=== PATIENT | male | born 1950 | race African-American/Black ===

== ENCOUNTER 2020-01-27 13:17 | Inpatient (IN) | payer MEDICARE, BC ==
[~2020-01-27] VITALS: Ht 170.2 cm; Wt 95.3 kg
[2020-01-27 13:20] VITALS: BP 111/80
--- NOTE | 2020-01-27 13:30 | NUR ---
ED Nurse Note: Late entry: PT brought in by EMS, bleeding from L-AV dialysis shunt since 1200 today. PT is AAO x 3-4; placed on cardiac monitors, show hypotensive, SR to ST 90-110; 1L bolus started per MD order during bedside assessment, due to hypotension, Will continue to monitor.
[2020-01-27] MEDS ORDERED: Surgicel 4in x 8in TOPIC ONE (13:45)
[2020-01-27 14:17] LABS: BASOPHILS % (AUTO) 0.8 % (0.0-2.0); EOSINOPHILS % (AUTO) 1.7 % (0.0-3.0); HEMATOCRIT 40.5 % (42.0-52.0); HEMOGLOBIN 12.9 G/DL (14.2-18.0); LYMPHOCYTES % (AUTO) 13.2 % (20.0-45.0); MEAN CORPUSCULAR VOLUME 101 FL (80-99); NEUTROPHILS % (AUTO) 71.3 % (45.0-75.0); PLATELET COUNT 214 K/UL (150-450); RED BLOOD COUNT 4.01 M/UL (4.70-6.10); RED CELL DISTRIBUTION WIDTH 14.3 % (11.6-14.8); WHITE BLOOD COUNT 7.9 K/UL (4.8-10.8)
--- NOTE | 2020-01-27 14:22 | Emergency Room Report ---
History of Present Illness General Chief Complaint: General Complaint Source: Patient (Solomon Snyder M.D.) Present Illness HPI 69-year-old male history of end-stage renal disease on dialysis Tuesday presented for bleeding from dialysis access of left upper extremity. Patient states he was having a bowel movement when he developed some bleeding at his dialysis shunt. He denies any pain but was complaining of some dizziness on arrival. He states he is "squeamish". No chest pain or shortness of breath. Or vomiting. Doctor is Dr. Yoshi Rhodes and concert promoter is Dr. Blair.. He denies any history of transfusions. (Solomon Snyder M.D.) Allergies: Coded Allergies: No Known Allergies (Verified , 02/22/09) Patient History Past Medical History: see triage record Reviewed Nursing Documentation: PMH: Agreed; PSxH: Agreed (Solomon Snyder M.D.) Nursing Documentation-PMH Hx Hypertension: Yes Hx Dialysis: Yes - m,w,f (Solomon Snyder M.D.) Review of Systems All Other Systems: negative except mentioned in HPI (Solomon Snyder M.D.) Physical Exam Vital Signs Date Time Temp Pulse Resp B/P (MAP) Pulse Ox O2 Delivery O2 Flow Rate FiO2 01/27/20 13:12 97.9 60 16 111/80 (90) 98 Room Air Sp02 EP Interpretation: reviewed, normal General Appearance: well appearing Head: normocephalic, atraumatic Eyes: bilateral eye PERRL, bilateral eye EOMI ENT: hearing grossly normal, moist mucus membranes Neck: full range of motion, supple Respiratory: lungs clear, normal breath sounds, no rhonchi, no respiratory distress, no retraction, no wheezing Cardiovascular #1: normal peripheral pulses, regular rate, rhythm, no murmur, other - AV shunt in left upper extremity with a small punctate hole with bleeding Gastrointestinal: non tender, soft, non-distended, no guarding Neurologic: alert, oriented x3, no focal defects Skin: normal color, warm/dry (Solomon Snyder M.D.) Procedures Additional Procedure Procedure Narrative Wound care Verbal consent obtained from patient site was left forearm, this was to control bleeding, using a hemostatic dressing was placed on a an existing dialysis shunt. Patient tolerated procedure well without complication (Solomon Snyder M.D.) Medical Decision Making Diagnostic Impression: Primary Impression: Syncope Additional Impressions: Bleeding from dialysis shunt Hyperkalemia ER Course Differential diagnosis included but not limited to syncope, vasovagal syndrome, anemia, bleeding dialysis access to name a few. Hemostatic dressing applied to dialysis access. IV fluid bolus given. In the ER while I was addressing patient's wound he did have a syncopal event. Due to this occurrence patient will fire further observation. Laboratory studies were sent. Signed out to oncoming physician to follow-up on diagnostics and final disposition. He was updated at bedside. (Solomon Snyder M.D.) Laboratory Tests Test 01/27/20 13:45 White Blood Count 7.9 K/UL (4.8-10.8) Red Blood Count 4.01 M/UL (4.70-6.10) L Hemoglobin 12.9 G/DL (14.2-18.0) L Hematocrit 40.5 % (42.0-52.0) L Mean Corpuscular Volume 101 FL (80-99) H Mean Corpuscular Hemoglobin 32.0 PG (27.0-31.0) H Mean Corpuscular Hemoglobin Concent 31.7 G/DL (32.0-36.0) L Red Cell Distribution Width 14.3 % (11.6-14.8) Platelet Count 214 K/UL (150-450) Mean Platelet Volume 6.2 FL (6.5-10.1) L Neutrophils (%) (Auto) 71.3 % (45.0-75.0) Lymphocytes (%) (Auto) 13.2 % (20.0-45.0) L Monocytes (%) (Auto) 13.0 % (1.0-10.0) H Eosinophils (%) (Auto) 1.7 % (0.0-3.0) Basophils (%) (Auto) 0.8 % (0.0-2.0) Prothrombin Time 10.8 SEC (9.30-11.50) Prothrombin Time INR 1.0 (0.9-1.1) Activated Partial Thromboplast Time 29 SEC (23-33) Sodium Level 139 MMOL/L (136-145) Potassium Level 5.3 MMOL/L (3.5-5.1) H Chloride Level 99 MMOL/L (98-107) Carbon Dioxide Level 22 MMOL/L (21-32) Anion Gap 18 mmol/L (5-15) H Blood Urea Nitrogen 58 mg/dL (7-18) H Creatinine 13.1 MG/DL (0.55-1.30) H Estimate Glomerular Filtration Rate 4.6 mL/min (>60) Glucose Level 111 MG/DL (74-106) H Calcium Level 7.5 MG/DL (8.5-10.1) L Total Bilirubin 0.3 MG/DL (0.2-1.0) Aspartate Amino Transferase (AST) 11 U/L (15-37) L Alanine Aminotransferase (ALT) 15 U/L (12-78) Alkaline Phosphatase 84 U/L (46-116) Total Protein 8.7 G/DL (6.4-8.2) H Albumin 3.4 G/DL (3.4-5.0) Globulin 5.3 g/dL Albumin/Globulin Ratio 0.6 (1.0-2.7) L (Scooter Cisneros MD) EKG Diagnostic Results Rate: normal Rhythm: NSR Other Impression T waves inverted in lead I and aVL. (Solomon Snyder M.D.) Last Vital Signs Date Time Temp Pulse Resp B/P (MAP) Pulse Ox O2 Delivery O2 Flow Rate FiO2 01/27/20 13:12 97.9 60 16 111/80 (90) 98 Room Air (Solomon Snyder M.D.) Reevaluation Time: 15:34 Reevaluation Impression Assumed care of the patient approximately 1500 hrs. from previous provider Briefly, this is 69-year-old male with history of ESRD on hemodialysis MWF presenting for bleeding AV graft site who had a witnessed syncopal episode while in the emergency department. Labs have returned largely within normal limits. Slight anemia though mentioned that there was a moderate amount of blood loss at home. Troponin negative. Potassium slightly elevated at 5.3. No EKG changes. Patient is feeling better though remains slightly hypotensive in the mid to low 90s. He states he typically runs in the mid 100s. Patient will be admitted for trending H&H and continued monitoring. Bleeding is controlled with Surgicel and Kerlix wrap placed by the previous provider. Will be admitted to panel physician. (Scooter Cisneros MD) Disposition: ADMITTED INPATIENT Condition: Serious Signed Out To: [employer] (Solomon Snyder M.D.) Referrals: NON PHYSICIAN (PCP) Solomon Snyder M.D. Jan 27, 2020 14:22 Scooter Cisneros MD Jan 27, 2020 15:36
[2020-01-27 14:32] LABS: ANION GAP 18 mmol/L (5-15); BLOOD UREA NITROGEN 58 mg/dL (7-18); CALCIUM 7.5 MG/DL (8.5-10.1); CARBON DIOXIDE 22 MMOL/L (21-32); CHLORIDE 99 MMOL/L (98-107); CREATININE 13.1 MG/DL (0.55-1.30); POTASSIUM 5.3 MMOL/L (3.5-5.1); SODIUM 139 MMOL/L (136-145)
[2020-01-27 14:34] LABS: ALANINE AMINOTRANSFERASE 15 U/L (12-78); ALBUMIN 3.4 G/DL (3.4-5.0); ALBUMIN/GLOBULIN RATIO 0.6 (1.0-2.7); ALKALINE PHOSPHATASE 84 U/L (46-116); ASPARTATE AMINO TRANSFERASE 11 U/L (15-37); BILIRUBIN,TOTAL 0.3 MG/DL (0.2-1.0)
--- NOTE | 2020-01-27 15:00 | NUR ---
ED Nurse Note: PT remains hypotensive, ER MD made aware, bolus ordered. Will continue to monitor PT.
[2020-01-27] MEDS ORDERED: Insulin Human Regular 100units/ml 3ml IV ONE (15:45)
[2020-01-27] MEDS ORDERED: Calcium Gluconate 1gm/10ml vial IVP ONE (15:45)
[2020-01-27 16:34] VITALS: BP 92/59
--- NOTE | 2020-01-27 17:39 | NUR ---
ED Nurse Note: Gave SBAR report to LENORA Rich; PT is going to [facility] tele status; med recon not done as PT did not have a list of meds at bedside or during triage, PT went home to go get his medications. PT reports PT has HX triple bypass, hip replacement, kidney transplant 3 years ago which failed and is currently on MWF dialysis average 2-3L out per session. BP 105/62; HR 70; 100% saturation on 2L-NC, 14 RR.
[2020-01-27 18:00] VITALS: BP 105/62
--- NOTE | 2020-01-27 18:15 | NUR ---
TRANSFER TO FLOOR: Patient transferred to [facility] as ordered, per MD Siddharth. Report given to LENORA Rich. Belongings signed for by PT. aware of transfer. PT was able to recall HX from past: multiple thrombectomy, prostatectomy, prostate cancer, removal of parathyroids, quad bypass, R-knee replacement, R-hip replacement, gout. PT current home meds plavix, ASA, lipitor.
--- NOTE | 2020-01-27 18:18 | Consultation ---
Consult Note Consult Note I was asked to evaluate the patient at the request of Dr. Messina for dialysis management Mr. Alvarado Prasad 69 years old male was seen in the emergency room he is on the way up to [place] Patient have history of end-stage renal disease on hemodialysis from year 2006 on 2013 the patient received a kidney transplant which lasted 2 years only and again the patient has been on hemodialysis since 2016 His previous surgeries include a partial parathyroidectomy prostatectomy due to cancer quadruple bypass surgery right knee and right hip surgery replacement Patient has a left upper arm fistula and had multiple episodes of thrombosis requiring thrombectomy Patient states that he was having a bowel movement when he developed some bleeding from his dialysis shunt. He referred himself to [place] emergency room was seen by Dr. Snyder the bleeding shunt was managed by pressure and wrapping however in the midst of it the patient developed an episode of hypotension and a witnessed syncope blood pressure went down to 70 systolic which went back up after given a bolus of fluids Patient is now being admitted to [place] for further management Blood pressure is now 110/80 pulse rate 60 respiratory rate 16 temperature 97.9 Alert and oriented and a great historian Evidence of surgeries on the neck area and mid chest area present Not in any respiratory distress Heart is regular Lungs are clear Abdomen is soft No leg edema She has no allergies His medications are aspirin Plavix and Lipitor . Assessment/Plan Witnessed syncope Bleeding from dialysis shunt over the left upper arm History of hypotension Mild hyperkalemia Plan would be to Get the vascular surgical evaluation. Patient needs an Welcome for tomorrow's dialysis. Need vascular surgical opinion if the current access is usable or the patient need a temporary catheter for dialysis Meanwhile we will put the patient on renal diet Will give a dose of Kayexalate And continue per consultants advice Discussed with Wilfredo the nurse in [place] Discussed with Dr. Blanc who suggested not to use the left upper arm graft and arrange for dialysis through a catheter. And he suggested to keep the left upper arm graft tightly bandaged to prevent further bleeding. Meanwhile we arrange placement of a non-tunneled dialysis catheter in order to dialyze the patient tomorrow. We then arrange for patient's transfer for fistulogram and repair of the shunt to either [facility] or [facility] as per vascular surgical advice Catracho Lala MD Jan 27, 2020 18:18
[2020-01-27] MEDS ORDERED: Sodium Polystyrene Sulfonate 15gm Powder ORAL SCH (18:30)
--- NOTE | 2020-01-27 18:30 | NUR ---
NURSE NOTES: Received report from Rhina Lu RN. Patient alert and oriented x 4, able to make needs known and follow commands. SR on diagnostic cardiac sonographer. Receiving O2 via nasal cannula @ 2L/min, respirations even and unlabored. Left AV shunt with clean and dry kerlix, no bleeding noted. Skin intact but noted with surgical scar on mid-chest. Right AC 18g patent and asymptomatic. Patient ambulated to bathroom and had BM. Bed locked in lowest position with side rails up x 3. All needs attended to. Call light within reach. Will continue to monitor.
--- NOTE | 2020-01-27 19:00 | NUR ---
NURSE NOTES: pt report received from MICHAEL Ku RN. pt remains stable. pt is alert and oriented times 4, follow commands. 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 pt is on room air, satting at 99%, no resp distress noted. pt bed is low, locked, armed, call light within reach, bed rails up times 3. will follow plan of care.
--- NOTE | 2020-01-27 19:43 | NUR ---
HAND-OFF: Report given to Rhina Butler RN.
[2020-01-27 20:00] VITALS: BP 98/65
[2020-01-27] MEDS: Atorvastatin 20mg tab ORAL SCH (22:11)
[2020-01-27] MEDS: D5NS 1,000 ML IV SCH (22:13)
[2020-01-28] VITALS (7 sets, daily range): BP systolic 93–127; BP diastolic 46–79
[2020-01-28] MEDS ORDERED: PLAVIX75 MG ORAL (01:36)
[2020-01-28] MEDS ORDERED: ATORVASTATIN CA10 MG ORAL (01:36)
[2020-01-28] MEDS ORDERED: ASPIRIN MC (01:39)
[2020-01-28] MEDS ORDERED: CALCIUM ACETATE1 GM MC (01:39)
[2020-01-28 05:41] LABS: BASOPHILS % (AUTO) 0.5 % (0.0-2.0); EOSINOPHILS % (AUTO) 2.2 % (0.0-3.0); HEMATOCRIT 32.4 % (42.0-52.0); HEMOGLOBIN 10.5 G/DL (14.2-18.0); LYMPHOCYTES % (AUTO) 16.4 % (20.0-45.0); MEAN CORPUSCULAR VOLUME 100 FL (80-99); MONOCYTES % (AUTO) 18.7 % (1.0-10.0); NEUTROPHILS % (AUTO) 62.2 % (45.0-75.0); PLATELET COUNT 180 K/UL (150-450); RED BLOOD COUNT 3.24 M/UL (4.70-6.10); RED CELL DISTRIBUTION WIDTH 14.3 % (11.6-14.8)
[2020-01-28 06:19] LABS: ALANINE AMINOTRANSFERASE 19 U/L (12-78); ALBUMIN 2.7 G/DL (3.4-5.0); ALBUMIN/GLOBULIN RATIO 0.6 (1.0-2.7); ALKALINE PHOSPHATASE 64 U/L (46-116); ANION GAP 16 mmol/L (5-15); ASPARTATE AMINO TRANSFERASE 9 U/L (15-37); BILIRUBIN,TOTAL 0.3 MG/DL (0.2-1.0); BLOOD UREA NITROGEN 62 mg/dL (7-18); CALCIUM 6.9 MG/DL (8.5-10.1); CARBON DIOXIDE 20 MMOL/L (21-32); CHLORIDE 103 MMOL/L (98-107); CHOLESTEROL 91 MG/DL (< 200); CREATININE 13.9 MG/DL (0.55-1.30); GAMMA GLUTAMYL TRANSPEPTIDASE 22 U/L (5-85); HDL CHOLESTEROL 26 MG/DL (40-60); SODIUM 140 MMOL/L (136-145); TRIGLYCERIDES 81 MG/DL (30-150)
[2020-01-28 06:25] LABS: POTASSIUM 6.1 MMOL/L (3.5-5.1)
--- NOTE | 2020-01-28 07:19 | NUR ---
NURSE NOTES: received patient report from gianna tripp.patient i son bed awake. not in acute distress. for catheter placement today. bed is low and locked for safety. will follow plan of care.
[2020-01-28 07:48] LABS: % IRON SATURATION 38 % (15-50); IRON 51 ug/dL (50-175); TOTAL IRON BINDING CAPACITY 136 ug/dL (250-450)
[2020-01-28 07:50] LABS: LACTATE DEHYDROGENASE 158 U/L (81-234)
--- NOTE | 2020-01-28 07:54 | NUR ---
HAND-OFF: Report given to WILMA COOLEY. Pt remains stable.
--- NOTE | 2020-01-28 08:13 | Nephrology Progress Note ---
Assessment/Plan Problem List: (1) ESRD (end stage renal disease) on dialysis (2) Hyperkalemia (3) Syncope (4) Bleeding from dialysis shunt Assessment Witnessed syncope Bleeding from dialysis shunt over the left upper arm History of hypotension Mild hyperkalemia Plan Kayexelate- Non tunneled cath placement and dialysis vascular surgical intervention afterwards Subjective ROS Limited/Unobtainable: No Constitutional: Reports: malaise Objective Objective Last 24 Hour Vital Signs Date Time Temp Pulse Resp B/P (MAP) Pulse Ox O2 Delivery O2 Flow Rate FiO2 01/28/20 04:00 69 01/28/20 00:00 69 01/28/20 00:00 98.6 79 23 96/69 (78) 99 01/27/20 21:00 Room Air Room Air 01/27/20 20:00 98.1 76 23 98/65 (76) 99 01/27/20 20:00 80 01/27/20 19:48 Nasal Cannula 1.0 01/27/20 18:15 98.5 70 22 105/62 100 Nasal Cannula 2.0 01/27/20 18:00 98.5 70 22 105/62 100 Nasal Cannula 2.0 01/27/20 16:34 97.9 100 15 92/59 100 Nasal Cannula 2.0 01/27/20 14:31 110 16 Nasal Cannula 2.0 01/27/20 13:20 97.9 110 16 111/80 98 Room Air 01/27/20 13:12 97.9 60 16 111/80 (90) 98 Room Air Intake and Output 01/27/20 01/28/20 19:00 07:00 Intake Total 240 ml 400 ml Balance 240 ml 400 ml Intake Oral 240 ml IV Total 400 ml # Bowel Movements 1 Laboratory Tests 01/27/20 13:45: White Blood Count 7.9, Red Blood Count 4.01L, Hemoglobin 12.9L, Hematocrit 40.5L , Mean Corpuscular Volume 101H, Mean Corpuscular Hemoglobin 32.0H, Mean Corpuscular Hemoglobin Concent 31.7L, Red Cell Distribution Width 14.3, Platelet Count 214, Mean Platelet Volume 6.2L, Neutrophils (%) (Auto) 71.3, Lymphocytes (%) (Auto) 13.2L, Monocytes (%) (Auto) 13.0H, Eosinophils (%) (Auto ) 1.7, Basophils (%) (Auto) 0.8, Prothrombin Time 10.8, Prothromb Time International Ratio 1.0, Activated Partial Thromboplast Time 29, Sodium Level 139, Potassium Level 5.3H, Chloride Level 99, Carbon Dioxide Level 22, Anion Gap 18H, Blood Urea Nitrogen 58H, Creatinine 13.1H, Estimat Glomerular Filtration Rate 4.6, Glucose Level 111H, Calcium Level 7.5L, Total Bilirubin 0.3 , Aspartate Amino Transf (AST/SGOT) 11L, Alanine Aminotransferase (ALT/SGPT) 15 , Alkaline Phosphatase 84, Troponin I 0.000, Total Protein 8.7H, Albumin 3.4, Globulin 5.3, Albumin/Globulin Ratio 0.6L, Carcinoembryonic Antigen [Pending] 01/28/20 04:30: White Blood Count 6.0, Red Blood Count 3.24L, Hemoglobin 10.5L, Hematocrit 32.4L , Mean Corpuscular Volume 100H, Mean Corpuscular Hemoglobin 32.4H, Mean Corpuscular Hemoglobin Concent 32.3, Red Cell Distribution Width 14.3, Platelet Count 180, Mean Platelet Volume 6.4L, Neutrophils (%) (Auto) 62.2, Lymphocytes ( %) (Auto) 16.4L, Monocytes (%) (Auto) 18.7H, Eosinophils (%) (Auto) 2.2, Basophils (%) (Auto) 0.5, Sodium Level 140, Potassium Level 6.1*H, Chloride Level 103, Carbon Dioxide Level 20L, Anion Gap 16H, Blood Urea Nitrogen 62H, Creatinine 13.9H, Estimat Glomerular Filtration Rate 4.4, Glucose Level 97, Calcium Level 6.9L, Total Bilirubin 0.3, Aspartate Amino Transf (AST/SGOT) 9L, Alanine Aminotransferase (ALT/SGPT) 19, Alkaline Phosphatase 64, Troponin I 0.000, Total Protein 7.0, Albumin 2.7L, Globulin 4.3, Albumin/Globulin Ratio 0.6L, Hemoglobin A1c 5.9, Uric Acid 7.2, Phosphorus Level 9.0H, Magnesium Level 2.0, Iron Level 51, Total Iron Binding Capacity 136L, Percent Iron Saturation 38 , Unsaturated Iron Binding 85L, Ferritin [Pending], Gamma Glutamyl Transpeptidase 22, Lactate Dehydrogenase [Pending], C-Reactive Protein, Quantitative 3.1H, Pro-B-Type Natriuretic Peptide 1479H, Triglycerides Level 81 , Cholesterol Level 91, LDL Cholesterol 52, HDL Cholesterol 26L, Cholesterol/ HDL Ratio 3.5, Folate 7.8L, Thyroid Stimulating Hormone (TSH) 0.894 Height (Feet): 5 Height (Inches): 7.00 Weight (Pounds): 196 General Appearance: no apparent distress Cardiovascular: normal rate Respiratory/Chest: lungs clear Abdomen: soft Extremities: other - left arm shunt bandaged Catracho Lala MD Jan 28, 2020 08:13
[2020-01-28] MEDS ORDERED: Sodium Polystyrene Sulfonate 15gm Powder ORAL SCH (08:15)
[2020-01-28 08:17] LABS: FERRITIN 972 NG/ML (8-388)
[2020-01-28] MEDS: Docusate 100mg cap ORAL SCH ×3 (08:31→17:20)
--- NOTE | 2020-01-28 10:28 | NUR ---
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 97.8 HR 60 RR 16 B/P 111/80 K 5.3 AGAP 18 VENOUS DUPLEX BLE=NEGATIVE IS: IV BOLUS NS X 1.5 LITERS CALCIUM GLUCONATE IV REGULAR INSULIN IV D50 IV ADMITTED TO STEP DOWN @ 1815 STEP DOWN STATUS DCP RETURN HOME
[2020-01-28] MEDS ORDERED: Lidocaine 1% Plain 30 ml INJ ONE (11:30)
[2020-01-28] MEDS ORDERED: Heparin1,000 units/500ml Premix(Conc:2 units/ml) IV ONE (11:30)
--- NOTE | 2020-01-28 12:41 | Cardiac Electrophysiology PN ---
Subjective Subjective [id number] Objective Last 24 Hour Vital Signs Date Time Temp Pulse Resp B/P (MAP) Pulse Ox O2 Delivery O2 Flow Rate FiO2 01/28/20 09:00 Room Air Room Air 01/28/20 07:52 82 01/28/20 04:00 69 01/28/20 00:00 69 01/28/20 00:00 98.6 79 23 96/69 (78) 99 01/27/20 21:00 Room Air Room Air 01/27/20 20:00 98.1 76 23 98/65 (76) 99 01/27/20 20:00 80 01/27/20 19:48 Nasal Cannula 1.0 01/27/20 18:15 98.5 70 22 105/62 100 Nasal Cannula 2.0 01/27/20 18:00 98.5 70 22 105/62 100 Nasal Cannula 2.0 01/27/20 16:34 97.9 100 15 92/59 100 Nasal Cannula 2.0 01/27/20 14:31 110 16 Nasal Cannula 2.0 01/27/20 13:20 97.9 110 16 111/80 98 Room Air 01/27/20 13:12 97.9 60 16 111/80 (90) 98 Room Air Intake and Output 01/27/20 01/28/20 19:00 07:00 Intake Total 240 ml 400 ml Balance 240 ml 400 ml Intake Oral 240 ml IV Total 400 ml # Bowel Movements 1 Laboratory Tests Test 01/27/20 13:45 01/28/20 04:30 01/28/20 08:20 White Blood Count 7.9 K/UL (4.8-10.8) 6.0 K/UL (4.8-10.8) Red Blood Count 4.01 M/UL (4.70-6.10) L 3.24 M/UL (4.70-6.10) L Hemoglobin 12.9 G/DL (14.2-18.0) L 10.5 G/DL (14.2-18.0) L Hematocrit 40.5 % (42.0-52.0) L 32.4 % (42.0-52.0) L Mean Corpuscular Volume 101 FL (80-99) H 100 FL (80-99) H Mean Corpuscular Hemoglobin 32.0 PG (27.0-31.0) H 32.4 PG (27.0-31.0) H Mean Corpuscular Hemoglobin Concent 31.7 G/DL (32.0-36.0) L 32.3 G/DL (32.0-36.0) Red Cell Distribution Width 14.3 % (11.6-14.8) 14.3 % (11.6-14.8) Platelet Count 214 K/UL (150-450) 180 K/UL (150-450) Mean Platelet Volume 6.2 FL (6.5-10.1) L 6.4 FL (6.5-10.1) L Neutrophils (%) (Auto) 71.3 % (45.0-75.0) 62.2 % (45.0-75.0) Lymphocytes (%) (Auto) 13.2 % (20.0-45.0) L 16.4 % (20.0-45.0) L Monocytes (%) (Auto) 13.0 % (1.0-10.0) H 18.7 % (1.0-10.0) H Eosinophils (%) (Auto) 1.7 % (0.0-3.0) 2.2 % (0.0-3.0) Basophils (%) (Auto) 0.8 % (0.0-2.0) 0.5 % (0.0-2.0) Prothrombin Time 10.8 SEC (9.30-11.50) 10.9 SEC (9.30-11.50) Prothromb Time International Ratio 1.0 (0.9-1.1) 1.0 (0.9-1.1) Activated Partial Thromboplast Time 29 SEC (23-33) Sodium Level 139 MMOL/L (136-145) 140 MMOL/L (136-145) Potassium Level 5.3 MMOL/L (3.5-5.1) H 6.1 MMOL/L (3.5-5.1) *H Chloride Level 99 MMOL/L (98-107) 103 MMOL/L (98-107) Carbon Dioxide Level 22 MMOL/L (21-32) 20 MMOL/L (21-32) L Anion Gap 18 mmol/L (5-15) H 16 mmol/L (5-15) H Blood Urea Nitrogen 58 mg/dL (7-18) H 62 mg/dL (7-18) H Creatinine 13.1 MG/DL (0.55-1.30) H 13.9 MG/DL (0.55-1.30) H Estimat Glomerular Filtration Rate 4.6 mL/min (>60) 4.4 mL/min (>60) Glucose Level 111 MG/DL (74-106) H 97 MG/DL (74-106) Calcium Level 7.5 MG/DL (8.5-10.1) L 6.9 MG/DL (8.5-10.1) L Total Bilirubin 0.3 MG/DL (0.2-1.0) 0.3 MG/DL (0.2-1.0) Aspartate Amino Transf (AST/SGOT) 11 U/L (15-37) L 9 U/L (15-37) L Alanine Aminotransferase (ALT/SGPT) 15 U/L (12-78) 19 U/L (12-78) Alkaline Phosphatase 84 U/L (46-116) 64 U/L (46-116) Troponin I 0.000 ng/mL (0.000-0.056) 0.000 ng/mL (0.000-0.056) Total Protein 8.7 G/DL (6.4-8.2) H 7.0 G/DL (6.4-8.2) Albumin 3.4 G/DL (3.4-5.0) 2.7 G/DL (3.4-5.0) L Globulin 5.3 g/dL 4.3 g/dL Albumin/Globulin Ratio 0.6 (1.0-2.7) L 0.6 (1.0-2.7) L Carcinoembryonic Antigen Pending Differential Total Cells Counted 100 Neutrophils % (Manual) 61 % (45-75) Lymphocytes % (Manual) 20 % (20-45) Monocytes % (Manual) 18 % (1-10) H Eosinophils % (Manual) 1 % (0-3) Basophils % (Manual) 0 % (0-2) Band Neutrophils 0 % (0-8) Platelet Estimate Adequate Platelet Morphology Normal Hemoglobin A1c 5.9 % (4.3-6.0) Uric Acid 7.2 MG/DL (2.6-7.2) Phosphorus Level 9.0 MG/DL (2.5-4.9) H Magnesium Level 2.0 MG/DL (1.8-2.4) Iron Level 51 ug/dL (50-175) Total Iron Binding Capacity 136 ug/dL (250-450) L Percent Iron Saturation 38 % (15-50) Unsaturated Iron Binding 85 ug/dL (112-346) L Ferritin 972 NG/ML (8-388) H Gamma Glutamyl Transpeptidase 22 U/L (5-85) Lactate Dehydrogenase 158 U/L (81-234) C-Reactive Protein, Quantitative 3.1 mg/dL (0.00-0.90) H Pro-B-Type Natriuretic Peptide 1479 pg/mL (0-125) H Triglycerides Level 81 MG/DL (30-150) Cholesterol Level 91 MG/DL (< 200) LDL Cholesterol 52 mg/dL (<100) HDL Cholesterol 26 MG/DL (40-60) L Cholesterol/HDL Ratio 3.5 (3.3-4.4) Vitamin B12 Level 422 PG/ML (193-986) Folate 7.8 NG/ML (8.6-58.9) L Thyroid Stimulating Hormone (TSH) 0.894 uiU/mL (0.358-3.740) Hepatitis B Surface Antigen Pending Microbiology Date/Time Source Procedure Growth Status 01/27/20 17:45 Rectum Received Zenon Gibbs MD Jan 28, 2020 12:41
--- NOTE | 2020-01-28 15:30 | NUR ---
RADIOLOGY NOTE: LEFT LOWER EXTREMITY PICC PLACED. Addendum: 01/28/20 at 1739 by DERECK SOLIS CRT RAD LEFT LOWER EXTREMITY SEEMA CATHETER PLACED
--- NOTE | 2020-01-28 15:54 | Diagnostic Imaging Report ---
Indication: Patient requires hemodialysis. Findings: After the indications, procedure, risks, complications, and alternatives of the procedure were explained, written informed consent was obtained. The neck was prepped with alcohol. All elements of maximal sterile barrier technique were followed including usage of a cap, mask, sterile gown, sterile gloves, hand hygiene and a large sterile sheet. 1% lidocaine was used to anesthetize the skin. Sonographic evaluation was performed demonstrating a patent and compressible left femoral vein. Access was obtained under real-time ultrasound guidance using an 18 gauge needle and a digital image was saved in archive. An 0.035 wire was then advanced into the vein. Needle exchanged for a dilator. A temporary hemodialysis catheter was then advanced over the wire. Wire was removed. Catheter was secured to the skin using 2-0 Prolene suture. Both ports aspirate and flush easily. Fluoroscopic imaging was utilized to negotiate the 035 wire into position. Final position of the hemodialysis catheter was confirmed by fluoroscopy. Total fluoroscopic time 15.7 seconds. The catheter is cleared for use. Impression: Successful placement of left femoral hemodialysis catheter.
--- NOTE | 2020-01-28 16:14 | History and Physical Report ---
DATE OF ADMISSION: 01/27/2020 HISTORY OF PRESENT ILLNESS: The patient . Has end-stage renal disease on hemodialysis, came in for bleeding from the graft without obvious injury. It is controlled with pressure bandage and also had a new weakness, syncopal episode while in the emergency room. Hemoglobin is stable. Potassium was also elevated. No significant EKG changes. The patient on dialysis. The patient's initial blood pressure was on the low side in the emergency room, but improved. Currently, the patient denies any chest pain. Denies nausea, vomiting, or diarrhea. Denies fever or chills. Feels weak. Denies shortness of breath. Denies cough. The bleeding has stopped from the graft on the left arm. Dr. Blanc as well as Dr. Lala were consulted for this patient. Denies any pain at this point. PAST MEDICAL HISTORY: Hyperlipidemia, CAD, end-stage renal disease on hemodialysis, and hyperlipidemia. PAST SURGICAL HISTORY: Parathyroidectomy, prostatectomy, left hip and right knee surgery, , CABG, and graft on the left upper arm for the dialysis. ALLERGIES: No known allergies. FAMILY HISTORY: Does have history of hypertension. SOCIAL HISTORY: Denies history of smoking. Denies history of alcohol or illicit drugs. , lives at home. REVIEW OF SYSTEMS: HEENT: Denies headaches. RESPIRATORY: Denies shortness of breath. Denies cough. CARDIOVASCULAR: Denies chest pain. No orthopnea. GASTROINTESTINAL: Denies any nausea, vomiting, or diarrhea. EXTREMITIES: Denies any pain. CENTRAL NERVOUS SYSTEM: Denies change in speech pattern. PHYSICAL EXAMINATION: VITAL SIGNS: Temperature is 98.1, pulse 76, blood pressure 98/65. HEENT: PERRLA. NECK: Supple. No lymphadenopathy. CHEST: Clear to auscultation. CARDIOVASCULAR: Regular rate and rhythm. No murmurs or extra sounds. GASTROINTESTINAL: Soft, nontender, nondistended. No organomegaly. EXTREMITIES: 1+ edema. Reflexes in both sides. Able to moves all extremities. The patient has normal bleeding at the left forearm graft. NEUROLOGIC: The patient is alert and oriented. LABORATORY DATA: WBC of 7.9, hemoglobin 12.9, and platelets of 214. Sodium 140, potassium 6.1, BUN of 62, creatinine of 13.9, glucose of 97. ASSESSMENT AND PLAN: Syncope, end-stage renal disease, bleeding graft on the left arm, hyperkalemia. I have consulted Dr. Blanc, Dr. Khalil, Dr. Lala as well as Dr. Jefferson Helms for the above-mentioned abnormalities and diagnoses and symptoms. We will also talk to Dr. Lala and see what he wants to do for this graft bleeding issue. Moi Messina M.D. DR: SAV JOB#: [id number] CC:
--- NOTE | 2020-01-28 16:44 | Consultation ---
DATE OF CONSULTATION: 01/28/2020 CARDIOLOGY CONSULTATION CONSULTING PHYSICIAN: Zenon Gibbs M.D. REFERRING PHYSICIAN: Moi Messina M.D. REASON FOR CONSULTATION: Management of coronary artery disease in the patient with coronary artery bypass graft. HISTORY OF PRESENT ILLNESS: The patient is a 69-year-old with history of end-stage renal disease on hemodialysis as well as coronary artery disease with history of coronary artery bypass graft in May of 2019 at [facility]. The patient has been on hemodialysis since 2005 and underwent a kidney transplant in 2013, which lasted 2 years only and the patient was resumed on hemodialysis in 2015. The patient has a left upper arm AV fistula and multiple episodes of thrombosis requiring thrombectomy. The patient was having a bowel movement and developed some bleeding from his dialysis shunt. He brought himself to [place] emergency room, was seen by Dr. Snyder and pressure was applied as well as wrapping. The patient's blood pressure dropped to 70s, but then backed up after the patient received IV fluids . The patient was admitted to [facility] and Cardiology consultation was obtained for further evaluation and management. REVIEW OF SYSTEMS: Review of systems was negative other than what was mentioned in the history of present illness. PAST MEDICAL HISTORY: As mentioned above. PAST SURGICAL HISTORY: 1. Quadruple bypass surgery in 2019. 2. Right hip surgery. 3. Parathyroidectomy. 4. Prostatectomy. PHYSICAL EXAMINATION: VITAL SIGNS: Show blood pressure of 96/69, pulse 82, respirations 18, and temperature 98. HEAD AND NECK: Shows no JVD. LUNGS: Clear. CARDIOVASCULAR: Regular S1 and S2. Status post sternotomy. ABDOMEN: Soft. EXTREMITIES: Dialysis access in the left arm that is covered by dressing in the elbow. LABORATORY AND DIAGNOSTIC DATA: Sodium 140, potassium 6.1, BUN of 62, creatinine of 13.9, glucose of 97. Troponins are negative x2. BNP is 1479. WBC of 6, hemoglobin 10.5, hematocrit 32.5, platelet count 180. INR is 1. ASSESSMENT AND PLAN: 1. Hypotension vagal. Blood pressure is still on the lower side. The patient received IV fluid. We will get an echocardiogram to evaluate for ejection fraction and wall motion abnormality. 2. Coronary artery disease with history of coronary artery bypass graft. The patient on Lipitor 20 mg daily, off aspirin in view of bleeding from the access site. 3. End-stage renal disease, on hemodialysis. 4. Bleeding from dialysis shunt, left upper arm. Further evaluation by Dr. Blanc who recommended transfer of the patient for fistulogram and repair of the shunt at [facility]. 5. Hyperkalemia. Thank you very much for allowing me to participate in the care of this patient. Please do not hesitate to contact me for any questions regarding my evaluation. Sincerely, Zenon Gibbs M.D. DR: Lona JOB#: [id number] CC:
[2020-01-28] MEDS: D5NS 1,000 ML IV SCH (17:49)
--- NOTE | 2020-01-28 18:10 | NUR ---
recieved pt. on dialysis awake alert orientedx4 , dialysis going through kaelyn cath in lt. groin , dressing cover shunt in lt lower arm dry and clean and intact, no c/o
--- NOTE | 2020-01-28 18:10 | NUR ---
HAND-OFF: Report given to jose tripp.
--- NOTE | 2020-01-28 19:00 | NUR ---
report given to JESSICA COREAS RN
--- NOTE | 2020-01-28 19:20 | NUR ---
NURSE NOTES: Received pt from LENORA Ramirez. pt is observed in bed, AO X4, denies pain at this time. pt is on room air, tolerating well, no s/sx of respiratory distress noted. teletypesetter monitor shows SR at this time, with current HR of 91; no acute cardiac distress noted. LFA shunt noted, dressing dry and intact. no s/sx of bleeding noted at this time. RODRIGO shunt noted as well, not in use. Left femoral Jeffrey catheter noted, dressing dry and intact. RAC IV site is patent and intact, asymptomatic. bed in lowest position and locked, siderails up X3, call light within reach. will continue to monitor.
[2020-01-28] MEDS ORDERED: Dyna-Hex 2% Top Sol 2oz TOPIC SCH (20:15)
--- NOTE | 2020-01-28 21:09 | Consultation ---
History of Present Illness General Chief Complaint: General Complaint Present Illness Allergies: Coded Allergies: No Known Allergies (Verified , 02/22/09) Medication History Scheduled Atorvastatin Calcium* (Lipitor*), Unknown Dose ORAL BEDTIME, (Reported) Clopidogrel Bisulfate* (Plavix*), 75 MG ORAL DAILY, (Reported) Miscellaneous Medications Aspirin (Aspirin), Unknown Dose MC, (Reported) Calcium Acetate (Calcium Acetate), Unknown Dose MC, (Reported) Patient History Healthcare decision maker Resuscitation status Full Code Advanced Directive on File Yes Physical Exam Last 24 Hour Vital Signs Date Time Temp Pulse Resp B/P (MAP) Pulse Ox O2 Delivery O2 Flow Rate FiO2 01/28/20 20:00 Room Air Room Air 01/28/20 16:00 77 01/28/20 15:20 70 22 118/72 (87) 100 01/28/20 15:15 76 22 115/72 (86) 100 01/28/20 15:10 75 22 115/79 (91) 100 01/28/20 15:08 77 01/28/20 14:55 74 18 2.0 01/28/20 09:00 Room Air Room Air 01/28/20 07:52 82 01/28/20 04:00 98.4 68 20 93/71 (78) 97 01/28/20 04:00 69 01/28/20 00:00 69 01/28/20 00:00 98.6 79 23 96/69 (78) 99 Intake and Output 01/27/20 01/28/20 19:00 07:00 Intake Total 240 ml 400 ml Balance 240 ml 400 ml Intake Oral 240 ml IV Total 400 ml # Bowel Movements 1 Laboratory Tests Test 01/28/20 04:30 01/28/20 08:20 White Blood Count 6.0 K/UL (4.8-10.8) Red Blood Count 3.24 M/UL (4.70-6.10) L Hemoglobin 10.5 G/DL (14.2-18.0) L Hematocrit 32.4 % (42.0-52.0) L Mean Corpuscular Volume 100 FL (80-99) H Mean Corpuscular Hemoglobin 32.4 PG (27.0-31.0) H Mean Corpuscular Hemoglobin Concent 32.3 G/DL (32.0-36.0) Red Cell Distribution Width 14.3 % (11.6-14.8) Platelet Count 180 K/UL (150-450) Mean Platelet Volume 6.4 FL (6.5-10.1) L Neutrophils (%) (Auto) 62.2 % (45.0-75.0) Lymphocytes (%) (Auto) 16.4 % (20.0-45.0) L Monocytes (%) (Auto) 18.7 % (1.0-10.0) H Eosinophils (%) (Auto) 2.2 % (0.0-3.0) Basophils (%) (Auto) 0.5 % (0.0-2.0) Differential Total Cells Counted 100 Neutrophils % (Manual) 61 % (45-75) Lymphocytes % (Manual) 20 % (20-45) Monocytes % (Manual) 18 % (1-10) H Eosinophils % (Manual) 1 % (0-3) Basophils % (Manual) 0 % (0-2) Band Neutrophils 0 % (0-8) Platelet Estimate Adequate Platelet Morphology Normal Sodium Level 140 MMOL/L (136-145) Potassium Level 6.1 MMOL/L (3.5-5.1) *H Chloride Level 103 MMOL/L (98-107) Carbon Dioxide Level 20 MMOL/L (21-32) L Anion Gap 16 mmol/L (5-15) H Blood Urea Nitrogen 62 mg/dL (7-18) H Creatinine 13.9 MG/DL (0.55-1.30) H Estimat Glomerular Filtration Rate 4.4 mL/min (>60) Glucose Level 97 MG/DL (74-106) Hemoglobin A1c 5.9 % (4.3-6.0) Uric Acid 7.2 MG/DL (2.6-7.2) Calcium Level 6.9 MG/DL (8.5-10.1) L Phosphorus Level 9.0 MG/DL (2.5-4.9) H Magnesium Level 2.0 MG/DL (1.8-2.4) Iron Level 51 ug/dL (50-175) Total Iron Binding Capacity 136 ug/dL (250-450) L Percent Iron Saturation 38 % (15-50) Unsaturated Iron Binding 85 ug/dL (112-346) L Ferritin 972 NG/ML (8-388) H Total Bilirubin 0.3 MG/DL (0.2-1.0) Gamma Glutamyl Transpeptidase 22 U/L (5-85) Aspartate Amino Transf (AST/SGOT) 9 U/L (15-37) L Alanine Aminotransferase (ALT/SGPT) 19 U/L (12-78) Alkaline Phosphatase 64 U/L (46-116) Lactate Dehydrogenase 158 U/L (81-234) Troponin I 0.000 ng/mL (0.000-0.056) C-Reactive Protein, Quantitative 3.1 mg/dL (0.00-0.90) H Pro-B-Type Natriuretic Peptide 1479 pg/mL (0-125) H Total Protein 7.0 G/DL (6.4-8.2) Albumin 2.7 G/DL (3.4-5.0) L Globulin 4.3 g/dL Albumin/Globulin Ratio 0.6 (1.0-2.7) L Triglycerides Level 81 MG/DL (30-150) Cholesterol Level 91 MG/DL (< 200) LDL Cholesterol 52 mg/dL (<100) HDL Cholesterol 26 MG/DL (40-60) L Cholesterol/HDL Ratio 3.5 (3.3-4.4) Vitamin B12 Level 422 PG/ML (193-986) Folate 7.8 NG/ML (8.6-58.9) L Thyroid Stimulating Hormone (TSH) 0.894 uiU/mL (0.358-3.740) Hepatitis B Surface Antigen Pending Prothrombin Time 10.9 SEC (9.30-11.50) Prothromb Time International Ratio 1.0 (0.9-1.1) Height (Feet): 5 Height (Inches): 7.00 Weight (Pounds): 196 Medications Current Medications Medications (Trade) Dose Ordered Sig/Rand Route PRN Reason Start Time Stop Time Status Last Admin Dose Admin Acetaminophen (Tylenol) 650 mg Q4H PRN ORAL Mild Pain/Temp > 100.5 01/28/20 00:15 02/27/20 00:14 Atorvastatin Calcium (Lipitor) 20 mg BEDTIME ORAL 01/27/20 21:00 02/26/20 20:59 01/27/20 22:11 Chlorhexidine Gluconate (Estrella-Hex 2%) 1 applic DAILY@199901/28/20 20:15 02/27/20 20:14 Dextrose/Sodium Chloride 1,000 ml @ 50 mls/hr Q20H IV 01/27/20 18:30 02/26/20 18:29 01/28/20 17:49 Docusate Sodium (Colace) 100 mg THREE TIMES A DAY ORAL 01/28/20 09:00 02/27/20 08:59 Folic Acid (Folate) 1 mg DAILY ORAL 01/28/20 10:00 02/27/20 09:59 01/28/20 10:51 Pantoprazole (Protonix) 40 mg EVERY 12 HOURS ORAL 01/27/20 21:00 02/26/20 20:59 01/28/20 08:31 Assessment/Plan Assessment/Plan: Hematology Consultation RFC: Anemia eval, bleeding left avf REQ MD: Moi Rouse DPS" 01/28/20 ID 69-year-old male history of end-stage renal disease on dialysis Tuesday presented for bleeding from dialysis access of left upper extremity. Patient states he was having a bowel movement when he developed some bleeding at his dialysis shunt. He denies any pain but was complaining of some dizziness on arrival. He states he is "squeamish". No chest pain or shortness of breath. Or vomiting. Doctor is Dr. Yoshi Rhodes and capacity planning engineer is Dr. Blair.. He denies any history of transfusions. Thus far has seen by renal and cards, and scheduled for distulogram and potential access placement, requires hd shortly. Allergies: Coded Allergies: No Known Allergies (Verified , 02/22/09) Patient History Past Medical History: see triage record Reviewed Nursing Documentation: PMH: Agreed; PSxH: Agreed (Solomon Snyder M.D.) Nursing Documentation-PMH Hx Hypertension: Yes Hx Dialysis: Yes - m,w,f Surgeries: prostatecomty, CABG, right hip replacement, knee surgery right side ROS (review of systems): Constitutional: No fever, no chills, no night sweats, no fatigue Skin: No rashes, lumps, itchiness, dryness HEENT: No FONSECA, ear ache, visual changes, double vision, nosebleeds Breasts: No lumps, pain, discharge Pulmonary: No cough, sputum, shortness of breath, coughing up blood Cardiovascular: No chest pain, tightness, palpitations, syncope, PND GI: No nausea, vomiting, diarrhea, melena, hematochezia, change in appetite, : No dysuria, frequency, urgency, urinary incontinence, foamy urine Musculoskeletal: No joint swelling or muscle pain, trauma, back pain Neurologic: No dizziness, fainting, seizures, changes in smell or taste Psychiatric: No nervousness, stress, or depression, anxiety, hallucinations Endocrine: No weight change, heat or cold intolerance, tremor, insomnia Physical Exam: Vitals: reviewed General: NAD HEENT: nc, at Neck: supple Chest: clear breath sounds bilaterally Cardiovascular: RRR, no s3, s4 Abdomen: soft, nontender, nd Extremities: no cce, normal range of motion, left avf shunt with bleed noted Neuro: alert and oriented : left fem hd site++ Labs: noted Imaging: reviewed Assessment and Recs; # Bleeding from avf is due to platelet dysfunction and resultant Anemia of chronic disease due to underlying chronic medical issues, multifactorial v Gi bleed --> Anemia workup has been ordered, rule out gi bleed --> No evidence of hemolysis is noted, peripheral smear has been reviewed. --> Hgb goal >7. Transfuse prn. --> Epogen zan to start if hgb <9 --> HOLD Off on iron --> Medications have been reviewed --> low threshold for gi evaluation in case has occult + # Bleeding diathesis of adialysis shunt --> replated to platelet dysfunction --> coags are currently normal --> physical pressure to control bleeding site --> repeat with vitk as needed # Successful placement of left femoral hemodialysis catheter. --> hd as per renal # Syncope --> on ivf --> recommend tylenol and nsaids prn # Hyperkalemia --> kayxelate prn --> avoid aceI # HYpotension --> cards eval and fluids prn The timing of this note does not necessarily reflect the time of the patient was seen. Greatly appreciate consultation. Jefferson Helms MD Jan 28, 2020 21:09
[2020-01-28] MEDS: Atorvastatin 20mg tab ORAL SCH (22:10)
[2020-01-29] VITALS: BP 95/57
--- NOTE | 2020-01-29 | NUR ---
NURSE NOTES: Received call from Dr. Blanc regarding planned procedure to repair pt's fistula. received new orders, noted and will carry out.
--- NOTE | 2020-01-29 02:00 | NUR ---
NURSE NOTES: rewrapped pt's LFA shunt with Kerlix and secured with tape. no s/sx of active bleeding. dressing dry and intact. at this time informed pt of plan regarding procedure to be done at [facility] and transportation. pt expressed concerns regarding financial responsibility of transportation and location. will inform MD.
--- NOTE | 2020-01-29 02:16 | NUR ---
NURSE NOTES: paged Dr. Blanc regarding pt's concerns regarding transportation and location of procedure. awaiting call back.
--- NOTE | 2020-01-29 02:25 | NUR ---
NURSE NOTES: received call back from Dr. Blanc. per MD, place case management consult. will carry out.
[2020-01-29 04:00] VITALS: BP 94/58
[2020-01-29 05:23] LABS: BASOPHILS % (AUTO) 0.5 % (0.0-2.0); EOSINOPHILS % (AUTO) 1.1 % (0.0-3.0); HEMATOCRIT 28.3 % (42.0-52.0); HEMOGLOBIN 9.3 G/DL (14.2-18.0); LYMPHOCYTES % (AUTO) 15.2 % (20.0-45.0); MEAN CORPUSCULAR VOLUME 99 FL (80-99); MONOCYTES % (AUTO) 13.9 % (1.0-10.0); NEUTROPHILS % (AUTO) 69.3 % (45.0-75.0); PLATELET COUNT 148 K/UL (150-450); RED BLOOD COUNT 2.86 M/UL (4.70-6.10); RED CELL DISTRIBUTION WIDTH 14.3 % (11.6-14.8); WHITE BLOOD COUNT 4.9 K/UL (4.8-10.8)
[2020-01-29 05:55] LABS: ANION GAP 12 mmol/L (5-15); BLOOD UREA NITROGEN 40 mg/dL (7-18); CALCIUM 6.8 MG/DL (8.5-10.1); CARBON DIOXIDE 28 MMOL/L (21-32); CHLORIDE 99 MMOL/L (98-107); CREATININE 9.8 MG/DL (0.55-1.30); POTASSIUM 3.3 MMOL/L (3.5-5.1); SODIUM 139 MMOL/L (136-145)
--- NOTE | 2020-01-29 06:36 | Hematology/Onc Progress Note ---
Assessment/Plan Assessment/Plan Assessment and Recs; # Bleeding from avf is due to platelet dysfunction and resultant Anemia of chronic disease due to underlying chronic medical issues, multifactorial v Gi bleed --> Anemia workup has been ordered, rule out gi bleed --> No evidence of hemolysis is noted, peripheral smear has been reviewed. --> Hgb goal >7. Transfuse prn. --> Epogen zan to start if hgb <9 --> HOLD Off on iron --> Medications have been reviewed --> low threshold for gi evaluation in case has occult + # Bleeding diathesis of adialysis shunt --> replated to platelet dysfunction --> coags are currently normal --> physical pressure to control bleeding site --> repeat with vitk as needed # Successful placement of left femoral hemodialysis catheter. --> hd as per renal # Syncope --> on ivf --> recommend tylenol and nsaids prn # Hyperkalemia --> kayxelate prn --> avoid aceI # HYpotension --> cards eval and fluids prn The timing of this note does not necessarily reflect the time of the patient was seen. Greatly appreciate consultation. Subjective Constitutional: Denies: no symptoms, chills, fever, malaise, weakness, other HEENT: Denies: no symptoms, eye pain, blurred vision, tearing, double vision, ear pain, ear discharge, nose pain, nose congestion, throat pain, throat swelling, mouth pain, mouth swelling, other Cardiovascular: Denies: no symptoms, chest pain, edema, irregular heart rate, lightheadedness, palpitations, syncope, other Respiratory: Denies: no symptoms, cough, shortness of breath, SOB with excertion, SOB at rest, sputum, wheezing, other Gastrointestinal/Abdominal: Denies: no symptoms, abdomen distended, abdominal pain, black stools, tarry stools, blood in stool, constipated, diarrhea, difficulty swallowing, nausea, poor appetite, poor fluid intake, rectal bleeding , vomiting, other Genitourinary: Denies: no symptoms, burning, discharge, frequency, flank pain, hematuria, incontinence, pain, urgency, other Neurologic/Psychiatric: Denies: no symptoms, anxiety, depressed, emotional problems, headache, numbness, paresthesia, pre-existing deficit, seizure, tingling, tremors, weakness, other Endocrine: Denies: no symptoms, excessive sweating, flushing, intolerance to cold, intolerance to heat, increased hunger, increased thirst, increased urine, unexplained weight gain, unexplained weight loss, other Hematologic/Lymphatic: Denies: no symptoms, anemia, easy bleeding, easy bruising, adenopathy, other Allergies: Coded Allergies: No Known Allergies (Verified , 02/22/09) Subjective 01/28: issues with access of chandra repair dialysis catheter, vascular aware Objective Objective Current Medications Medications (Trade) Dose Ordered Sig/Rand Route PRN Reason Start Time Stop Time Status Last Admin Dose Admin Acetaminophen (Tylenol) 650 mg Q4H PRN ORAL Mild Pain/Temp > 100.5 01/28/20 00:15 02/27/20 00:14 Atorvastatin Calcium (Lipitor) 20 mg BEDTIME ORAL 01/27/20 21:00 02/26/20 20:59 01/28/20 22:10 Chlorhexidine Gluconate (Estrella-Hex 2%) 1 applic DAILY@2000 TOPIC 01/28/20 20:15 02/27/20 20:14 01/28/20 22:10 Dextrose/Sodium Chloride 1,000 ml @ 50 mls/hr Q20H IV 01/27/20 18:30 02/26/20 18:29 01/28/20 17:49 Docusate Sodium (Colace) 100 mg THREE TIMES A DAY ORAL 01/28/20 09:00 02/27/20 08:59 Folic Acid (Folate) 1 mg DAILY ORAL 01/28/20 10:00 02/27/20 09:59 01/28/20 10:51 Pantoprazole (Protonix) 40 mg EVERY 12 HOURS ORAL 01/27/20 21:00 02/26/20 20:59 01/28/20 22:11 Last 24 Hour Vital Signs Date Time Temp Pulse Resp B/P (MAP) Pulse Ox O2 Delivery O2 Flow Rate FiO2 01/29/20 04:00 80 82 79 01/29/20 04:00 95 01/29/20 04:00 98.6 80 20 94/58 (70) 99 01/29/20 04:00 Room Air Room Air 01/29/20 00:00 88 01/29/20 00:00 98.1 80 20 95/57 (70) 95 01/29/20 00:00 Room Air Room Air 01/28/20 20:00 88 01/28/20 20:00 98.5 73 20 93/46 (62) 100 01/28/20 20:00 Room Air Room Air 01/28/20 16:00 77 01/28/20 15:20 70 22 118/72 (87) 100 01/28/20 15:15 76 22 115/72 (86) 100 01/28/20 15:10 75 22 115/79 (91) 100 01/28/20 15:08 77 01/28/20 14:55 74 18 2.0 01/28/20 09:00 Room Air Room Air 01/28/20 07:52 82 01/28/20 04:00 98.4 68 20 93/71 (78) 97 01/28/20 04:00 69 01/28/20 00:00 69 01/28/20 00:00 98.6 79 23 96/69 (78) 99 01/27/20 21:00 Room Air Room Air 01/27/20 20:00 98.1 76 23 98/65 (76) 99 01/27/20 20:00 80 01/27/20 19:48 Nasal Cannula 1.0 01/27/20 18:15 98.5 70 22 105/62 100 Nasal Cannula 2.0 01/27/20 18:00 98.5 70 22 105/62 100 Nasal Cannula 2.0 01/27/20 16:34 97.9 100 15 92/59 100 Nasal Cannula 2.0 01/27/20 14:31 110 16 Nasal Cannula 2.0 01/27/20 13:20 97.9 110 16 111/80 98 Room Air 01/27/20 13:12 97.9 60 16 111/80 (90) 98 Room Air Intake and Output 01/28/20 01/29/20 19:00 07:00 Intake Total 50 ml 1500 ml Balance 50 ml 1500 ml IV Total 50 ml 500 ml Hemodialysis 1000 ml Labs Test 01/27/20 13:45 01/28/20 04:30 01/28/20 08:20 01/29/20 03:25 White Blood Count 7.9 K/UL (4.8-10.8) 6.0 K/UL (4.8-10.8) 4.9 K/UL (4.8-10.8) Red Blood Count 4.01 M/UL (4.70-6.10) 3.24 M/UL (4.70-6.10) 2.86 M/UL (4.70-6.10) Hemoglobin 12.9 G/DL (14.2-18.0) 10.5 G/DL (14.2-18.0) 9.3 G/DL (14.2-18.0) Hematocrit 40.5 % (42.0-52.0) 32.4 % (42.0-52.0) 28.3 % (42.0-52.0) Mean Corpuscular Volume 101 FL (80-99) 100 FL (80-99) 99 FL (80-99) Mean Corpuscular Hemoglobin 32.0 PG (27.0-31.0) 32.4 PG (27.0-31.0) 32.5 PG (27.0-31.0) Mean Corpuscular Hemoglobin Concent 31.7 G/DL (32.0-36.0) 32.3 G/DL (32.0-36.0) 32.9 G/DL (32.0-36.0) Red Cell Distribution Width 14.3 % (11.6-14.8) 14.3 % (11.6-14.8) 14.3 % (11.6-14.8) Platelet Count 214 K/UL (150-450) 180 K/UL (150-450) 148 K/UL (150-450) Mean Platelet Volume 6.2 FL (6.5-10.1) 6.4 FL (6.5-10.1) 6.4 FL (6.5-10.1) Neutrophils (%) (Auto) 71.3 % (45.0-75.0) 62.2 % (45.0-75.0) 69.3 % (45.0-75.0) Lymphocytes (%) (Auto) 13.2 % (20.0-45.0) 16.4 % (20.0-45.0) 15.2 % (20.0-45.0) Monocytes (%) (Auto) 13.0 % (1.0-10.0) 18.7 % (1.0-10.0) 13.9 % (1.0-10.0) Eosinophils (%) (Auto) 1.7 % (0.0-3.0) 2.2 % (0.0-3.0) 1.1 % (0.0-3.0) Basophils (%) (Auto) 0.8 % (0.0-2.0) 0.5 % (0.0-2.0) 0.5 % (0.0-2.0) Prothrombin Time 10.8 SEC (9.30-11.50) 10.9 SEC (9.30-11.50) Prothromb Time International Ratio 1.0 (0.9-1.1) 1.0 (0.9-1.1) Activated Partial Thromboplast Time 29 SEC (23-33) Sodium Level 139 MMOL/L (136-145) 140 MMOL/L (136-145) 139 MMOL/L (136-145) Potassium Level 5.3 MMOL/L (3.5-5.1) 6.1 MMOL/L (3.5-5.1) 3.3 MMOL/L (3.5-5.1) Chloride Level 99 MMOL/L (98-107) 103 MMOL/L (98-107) 99 MMOL/L (98-107) Carbon Dioxide Level 22 MMOL/L (21-32) 20 MMOL/L (21-32) 28 MMOL/L (21-32) Anion Gap 18 mmol/L (5-15) 16 mmol/L (5-15) 12 mmol/L (5-15) Blood Urea Nitrogen 58 mg/dL (7-18) 62 mg/dL (7-18) 40 mg/dL (7-18) Creatinine 13.1 MG/DL (0.55-1.30) 13.9 MG/DL (0.55-1.30) 9.8 MG/DL (0.55-1.30) Estimat Glomerular Filtration Rate 4.6 mL/min (>60) 4.4 mL/min (>60) 6.4 mL/min (>60) Glucose Level 111 MG/DL (74-106) 97 MG/DL (74-106) 85 MG/DL (74-106) Calcium Level 7.5 MG/DL (8.5-10.1) 6.9 MG/DL (8.5-10.1) 6.8 MG/DL (8.5-10.1) Total Bilirubin 0.3 MG/DL (0.2-1.0) 0.3 MG/DL (0.2-1.0) Aspartate Amino Transf (AST/SGOT) 11 U/L (15-37) 9 U/L (15-37) Alanine Aminotransferase (ALT/SGPT) 15 U/L (12-78) 19 U/L (12-78) Alkaline Phosphatase 84 U/L (46-116) 64 U/L (46-116) Troponin I 0.000 ng/mL (0.000-0.056) 0.000 ng/mL (0.000-0.056) 0.000 ng/mL (0.000-0.056) Total Protein 8.7 G/DL (6.4-8.2) 7.0 G/DL (6.4-8.2) Albumin 3.4 G/DL (3.4-5.0) 2.7 G/DL (3.4-5.0) Globulin 5.3 g/dL 4.3 g/dL Albumin/Globulin Ratio 0.6 (1.0-2.7) 0.6 (1.0-2.7) Differential Total Cells Counted 100 Neutrophils % (Manual) 61 % (45-75) Lymphocytes % (Manual) 20 % (20-45) Monocytes % (Manual) 18 % (1-10) Eosinophils % (Manual) 1 % (0-3) Basophils % (Manual) 0 % (0-2) Band Neutrophils 0 % (0-8) Platelet Estimate Adequate Platelet Morphology Normal Hemoglobin A1c 5.9 % (4.3-6.0) Uric Acid 7.2 MG/DL (2.6-7.2) Phosphorus Level 9.0 MG/DL (2.5-4.9) Magnesium Level 2.0 MG/DL (1.8-2.4) Iron Level 51 ug/dL (50-175) Total Iron Binding Capacity 136 ug/dL (250-450) Percent Iron Saturation 38 % (15-50) Unsaturated Iron Binding 85 ug/dL (112-346) Ferritin 972 NG/ML (8-388) Gamma Glutamyl Transpeptidase 22 U/L (5-85) Lactate Dehydrogenase 158 U/L (81-234) C-Reactive Protein, Quantitative 3.1 mg/dL (0.00-0.90) Pro-B-Type Natriuretic Peptide 1479 pg/mL (0-125) Triglycerides Level 81 MG/DL (30-150) Cholesterol Level 91 MG/DL (< 200) LDL Cholesterol 52 mg/dL (<100) HDL Cholesterol 26 MG/DL (40-60) Cholesterol/HDL Ratio 3.5 (3.3-4.4) Vitamin B12 Level 422 PG/ML (193-986) Folate 7.8 NG/ML (8.6-58.9) Thyroid Stimulating Hormone (TSH) 0.894 uiU/mL (0.358-3.740) Height (Feet): 5 Height (Inches): 7.00 Weight (Pounds): 196 Objective Vitals: reviewed General: NAD HEENT: nc, at Neck: supple Chest: clear breath sounds bilaterally Cardiovascular: RRR, no s3, s4 Abdomen: soft, nontender, nd Extremities: no cce, normal range of motion, left avf shunt with bleed noted Neuro: alert and oriented : left fem hd site++ Jefferson Helms MD Jan 29, 2020 06:36
--- NOTE | 2020-01-29 07:30 | NUR ---
HAND-OFF: Report given to LENORA Burkett. pt is in stable condition.
--- NOTE | 2020-01-29 07:40 | NUR ---
NURSE NOTES: Received pt from LENORA Sorto. pt is observed in bed, AO X4, denies pain at this time. pt is on room air, tolerating well, no s/sx of respiratory distress noted. monitoring and evaluation advisor shows SR. LFA shunt noted, dressing dry and intact; however pt wanted real estate underwriter to rewrap it to make it tighter. no s/sx of bleeding noted. RODRIGO shunt noted as well, not in use. Left femoral Jeffrey catheter noted, dressing dry and intact. Rt AC IV site is patent and intact, asymptomatic. Bed locked and in lowest position, siderails up X3, call light within reach. Will f/u with status of transfer to [facility] for fistulogram and shunt repair. Will continue to monitor.
[2020-01-29 08:00] VITALS: BP 93/72
[2020-01-29] MEDS: Docusate 100mg cap ORAL SCH ×2 (08:53→13:00)
[2020-01-29] MEDS: D5NS 1,000 ML IV SCH (09:19)
--- NOTE | 2020-01-29 09:30 | NUR ---
NURSE NOTES: Dr Messina gave TO for pt to be discharged/transferred to [facility] for fistulogram and shunt repair. Ambulance arranged by zinc furnace charger. Pt informed and will be prepared for package pick up at 11:30.
--- NOTE | 2020-01-29 11:40 | Cardiac Electrophysiology PN ---
Assessment/Plan Assessment/Plan 1. Hypotension likely vagal. Blood pressure is better after IV fluid. Echocardiogram showed EF 65% 2. Coronary artery disease with history of coronary artery bypass graft. The patient on Lipitor 20 mg daily, off aspirin in view of bleeding from the access site. 3. End-stage renal disease, on hemodialysis. 4. Bleeding from dialysis shunt, left upper arm. Further evaluation by Dr. Blanc who is transferring to [facility] for fistulogram and repair of the shunt at [facility] 5. Hyperkalemia. Subjective Subjective Alert in NAD. No CP or SOB. Awaiting transfer to [facility] for fistulogram Objective Last 24 Hour Vital Signs Date Time Temp Pulse Resp B/P (MAP) Pulse Ox O2 Delivery O2 Flow Rate FiO2 01/29/20 09:00 Room Air Room Air 01/29/20 09:00 78 95 84 01/29/20 08:00 98.2 78 21 93/72 (79) 95 01/29/20 08:00 83 01/29/20 04:00 80 82 79 01/29/20 04:00 95 01/29/20 04:00 98.6 80 20 94/58 (70) 99 01/29/20 04:00 Room Air Room Air 01/29/20 00:00 88 01/29/20 00:00 98.1 80 20 95/57 (70) 95 01/29/20 00:00 Room Air Room Air 01/28/20 20:00 88 01/28/20 20:00 98.5 73 20 93/46 (62) 100 01/28/20 20:00 Room Air Room Air 01/28/20 16:00 77 01/28/20 15:20 70 22 118/72 (87) 100 01/28/20 15:15 76 22 115/72 (86) 100 01/28/20 15:10 75 22 115/79 (91) 100 01/28/20 15:08 77 01/28/20 14:55 74 18 2.0 Intake and Output 01/28/20 01/29/20 19:00 07:00 Intake Total 50 ml 1630 ml Balance 50 ml 1630 ml Intake Oral 30 ml IV Total 50 ml 600 ml Hemodialysis 1000 ml Laboratory Tests Test 01/29/20 03:25 White Blood Count 4.9 K/UL (4.8-10.8) Red Blood Count 2.86 M/UL (4.70-6.10) L Hemoglobin 9.3 G/DL (14.2-18.0) L Hematocrit 28.3 % (42.0-52.0) L Mean Corpuscular Volume 99 FL (80-99) Mean Corpuscular Hemoglobin 32.5 PG (27.0-31.0) H Mean Corpuscular Hemoglobin Concent 32.9 G/DL (32.0-36.0) Red Cell Distribution Width 14.3 % (11.6-14.8) Platelet Count 148 K/UL (150-450) L Mean Platelet Volume 6.4 FL (6.5-10.1) L Neutrophils (%) (Auto) 69.3 % (45.0-75.0) Lymphocytes (%) (Auto) 15.2 % (20.0-45.0) L Monocytes (%) (Auto) 13.9 % (1.0-10.0) H Eosinophils (%) (Auto) 1.1 % (0.0-3.0) Basophils (%) (Auto) 0.5 % (0.0-2.0) Sodium Level 139 MMOL/L (136-145) Potassium Level 3.3 MMOL/L (3.5-5.1) L Chloride Level 99 MMOL/L (98-107) Carbon Dioxide Level 28 MMOL/L (21-32) Anion Gap 12 mmol/L (5-15) Blood Urea Nitrogen 40 mg/dL (7-18) H Creatinine 9.8 MG/DL (0.55-1.30) H Estimat Glomerular Filtration Rate 6.4 mL/min (>60) Glucose Level 85 MG/DL (74-106) Calcium Level 6.8 MG/DL (8.5-10.1) L Troponin I 0.000 ng/mL (0.000-0.056) Microbiology Date/Time Source Procedure Growth Status 01/27/20 17:45 Nasal Nares Right MRSA Culture - Final NO METHICILLIN RESISTANT STAPH AUREUS... Complete 01/27/20 17:45 Rectum Received Objective HEAD AND NECK: No JVD. LUNGS: Clear. CARDIOVASCULAR: Regular S1 and S2. Status post sternotomy. ABDOMEN: Soft. EXTREMITIES: Dialysis access in the left arm that is covered by dressing in the elbow. Zenon Gibbs MD Jan 29, 2020 11:40
--- NOTE | 2020-01-29 11:54 | Nephrology Progress Note ---
Assessment/Plan Problem List: (1) ESRD (end stage renal disease) on dialysis (2) Hyperkalemia (3) Syncope (4) Bleeding from dialysis shunt Assessment Witnessed syncope Bleeding from dialysis shunt over the left upper arm History of hypotension Mild hyperkalemia Plan Patient was dialyzed yesterday He has a non-tunneled temporary femoral catheter for dialysis access He is due for transfer to [facility] for vascular surgical intervention Kayexelate-was given yesterday for high potassium Non tunneled cath placement and dialysis was done on January 27 vascular surgical intervention afterwards Subjective ROS Limited/Unobtainable: No Objective Objective Last 24 Hour Vital Signs Date Time Temp Pulse Resp B/P (MAP) Pulse Ox O2 Delivery O2 Flow Rate FiO2 01/29/20 09:00 Room Air Room Air 01/29/20 09:00 78 95 84 01/29/20 08:00 98.2 78 21 93/72 (79) 95 01/29/20 08:00 83 01/29/20 04:00 80 82 79 01/29/20 04:00 95 01/29/20 04:00 98.6 80 20 94/58 (70) 99 01/29/20 04:00 Room Air Room Air 01/29/20 00:00 88 01/29/20 00:00 98.1 80 20 95/57 (70) 95 01/29/20 00:00 Room Air Room Air 01/28/20 20:00 88 01/28/20 20:00 98.5 73 20 93/46 (62) 100 01/28/20 20:00 Room Air Room Air 01/28/20 16:00 77 01/28/20 15:20 70 22 118/72 (87) 100 01/28/20 15:15 76 22 115/72 (86) 100 01/28/20 15:10 75 22 115/79 (91) 100 01/28/20 15:08 77 01/28/20 14:55 74 18 2.0 Intake and Output 01/28/20 01/29/20 19:00 07:00 Intake Total 50 ml 1630 ml Balance 50 ml 1630 ml Intake Oral 30 ml IV Total 50 ml 600 ml Hemodialysis 1000 ml Current Medications Medications (Trade) Dose Ordered Sig/Rand Route PRN Reason Start Time Stop Time Status Last Admin Dose Admin Acetaminophen (Tylenol) 650 mg Q4H PRN ORAL Mild Pain/Temp > 100.5 01/28/20 00:15 02/27/20 00:14 Atorvastatin Calcium (Lipitor) 20 mg BEDTIME ORAL 01/27/20 21:00 02/26/20 20:59 01/28/20 22:10 Chlorhexidine Gluconate (Estrella-Hex 2%) 1 applic DAILY@2000 TOPIC 01/28/20 20:15 02/27/20 20:14 01/28/20 22:10 Dextrose/Sodium Chloride 1,000 ml @ 50 mls/hr Q20H IV 01/27/20 18:30 02/26/20 18:29 01/29/20 09:19 Docusate Sodium (Colace) 100 mg THREE TIMES A DAY ORAL 01/28/20 09:00 02/27/20 08:59 01/29/20 08:53 Folic Acid (Folate) 1 mg DAILY ORAL 01/28/20 10:00 02/27/20 09:59 01/29/20 08:53 Pantoprazole (Protonix) 40 mg EVERY 12 HOURS ORAL 01/27/20 21:00 02/26/20 20:59 01/29/20 08:53 Laboratory Tests 01/29/20 03:25: White Blood Count 4.9, Red Blood Count 2.86L, Hemoglobin 9.3L, Hematocrit 28.3L , Mean Corpuscular Volume 99, Mean Corpuscular Hemoglobin 32.5H, Mean Corpuscular Hemoglobin Concent 32.9, Red Cell Distribution Width 14.3, Platelet Count 148L, Mean Platelet Volume 6.4L, Neutrophils (%) (Auto) 69.3, Lymphocytes (%) (Auto) 15.2L, Monocytes (%) (Auto) 13.9H, Eosinophils (%) (Auto) 1.1, Basophils (%) (Auto) 0.5, Sodium Level 139, Potassium Level 3.3L, Chloride Level 99, Carbon Dioxide Level 28, Anion Gap 12, Blood Urea Nitrogen 40H, Creatinine 9.8H, Estimat Glomerular Filtration Rate 6.4, Glucose Level 85, Calcium Level 6.8L, Troponin I 0.000 Height (Feet): 5 Height (Inches): 7.00 Weight (Pounds): 210 General Appearance: no apparent distress Cardiovascular: normal rate Respiratory/Chest: decreased breath sounds Abdomen: soft Extremities: other - No further bleeding from the left arm shunt Catracho Lala MD Jan 29, 2020 11:54
[2020-01-29 12:00] VITALS: BP 100/64
--- NOTE | 2020-01-29 13:00 | NUR ---
NURSE NOTES: Last minute, as EMS arrived to transport to [facility], pt refused transport after speaking to Dr. Bar, who informed pt that he should be going to [facility] for the procedure. Dr. Messina notified. Pt is stable and will be discharged home instead and advised to follow up with Dr. Bar.
[2020-01-29] MEDS ORDERED: D5NS 1000ml IV ONE (15:59)
[2020-01-29 16:00] VITALS: BP 98/55
--- NOTE | 2020-01-29 16:15 | NUR ---
NURSE NOTES: Pt was discharged, picked up by his . Pt took all of his belongings and signed the belongings sheet. Discharge instructions were explained to the pt. Pt is stable at this time. Pt stated that he will be going to [facility] to seek treatment from his doctor, Dr. Bar.
--- NOTE | 2020-01-31 09:41 | Discharge Summary ---
Discharge Summary Discharge Summary _ . . DATE OF ADMISSION: 01/27/2020 DATE OF DISCHARGE: 01/29/2020 DISCHARGED BY: Dr. Bernard REASON FOR ADMISSION: 69 years old male with past medical history of hypertension, end-stage renal disease on hemodialysis, CAD with history of CABG, presented with bleeding from dialysis access located at the left upper extremity. He denied chest pain or shortness of breath . He denied prior history of transfusion Upon evaluation vital signs were stable. Bleeding was controlled with Surgicel and Kerlix wrap. While in the emergency room, patient had a witnessed syncopal episode. Patient was hypotensive and received 1 L of fluids. Blood pressure improved. Laboratory work-up was essentially stable. Troponin was negative. EKG revealed sinus rhythm . Mild anemia with hemoglobin 12.9 hematocrit 40.5 noted. Potassium 5.3. BUN 58, creatinine 13.1, consistent with known history of end-stage renal disease. Glucose 111. Stable LFT. Albumin 3.4. Patient subsequently admitted for further management CONSULTANTS: cell repairer Dr. Morris coroner transport technician Dr. Lala dry cleaner helper/oncologist Dr. Helms [facility] COURSE: Patient admitted to monitored floor. Smoking Tobacco Cutter Operator followed. Serial troponin were negative. EKG revealed no acute ischemic changes. Patient was ruled out for acute myocardial infarction. Per cardiology hypotension was likely vagal and improved after IV fluids. Echocardiogram revealed preserved ejection fraction of 65%. Patient with a known history of coronary artery disease, status post coronary artery bypass graft. Statin continued , but patient was taken off aspirin at thsi time in view of bleeding from the dialysis shunt. Venous duplex bilateral lower extremity revealed no evidence of acute DVT. Hyperkalemia was treated. Patient undergone placement of non-tunneled hemodialysis catheter by interventional radiology via the left femoral vein. Hemodialysis provided as per coroner transport technician orders with close monitoring of volumes ,renal parameters electrolytes. Hemoglobin and hematocrit were closely monitored. Prior to discharge hemoglobin 9.3, hematocrit 28.3. Anemia work-up revealed evidence of anemia of chronic disease ; ferritin 972. Transfer was arranged to [facility] for fistulogram and repair of the AV shunt. When ambulance arrived , patient declined to go. Patient spoke with his primary coroner transport technician, who advised him to go instead to [facility]. Patient subsequently was discharged home with outpatient follow-up with his coroner transport technician for dialysis and for repair of the AV shunt. FINAL DIAGNOSES: Bleeding from dialysis shunt, left upper arm Bleeding diathesis of dialysis shunt Hyperkalemia s/p left femoral non-tunneled hemodialysis catheter Syncope , likely vasovagal Hypotension, likely vagal- resolved Coronary artery disease with history of coronary artery bypass graft End-stage renal disease, on hemodialysis DISCHARGE MEDICATIONS: See Medication Reconciliation list. DISCHARGE INSTRUCTIONS: Patient was discharged home. Follow-up with coroner transport technician this week and outpatient HD as scheduled. I have been assigned to dictate discharge summary for this account. I was not involved in the patient's management. Vivian Molina NP Jan 31, 2020 09:41
== END 2020-01-29 16:00 | disposition home or self-care (01) | DRG 314 ==
LOC: EDBD 13:17 → EMR 13:42 → EDBEDREQ 16:52 → 2W 17:07
PROC: 06HN33Z Insertion of Infusion Device into Left Femoral Vein, Percutaneous Approach (ICD-10-PCS; principal; 2020-01-28)
DX: T82.838A Hemorrhage due to vascular prosthetic devices, implants and grafts, initial encounter (principal); N18.6 End stage renal disease; E78.5 Hyperlipidemia, unspecified; D69.1 Qualitative platelet defects; Y83.2 Surgical operation with anastomosis, bypass or graft as the cause of abnormal reaction of the patient, or of later complication, without mention of misadventure at the time of the procedure; I25.10 Atherosclerotic heart disease of native coronary artery without angina pectoris; Z99.2 Dependence on renal dialysis; Z95.1 Presence of aortocoronary bypass graft; R55 Syncope and collapse; Z79.02 Long term (current) use of antithrombotics/antiplatelets; Z79.82 Long term (current) use of aspirin; I95.9 Hypotension, unspecified
CPT/HCPCS: 36415; 36569; 76937; 80048; 80053; 80061; 82378; 82607; 82728; 82746; 82977; 83036; 83540; 83550; 83615; 83735; 83880; 84100; 84443; 84484; 84550; 85007; 85025; 85060; 85610; 85730; 86140; 86706; 86850; 86900; 86901; 87081; 93005; 93306; 93970; 96361; 96374; 96375; 99285; J7030

== ENCOUNTER 2020-04-19 15:31 | Emergency (ER) | payer MEDICARE, BC ==
[~2020-04-19] VITALS: Ht 170.2 cm; Wt 94.3 kg
[~2020-04-19 15:31] MED LIST: ASPIRIN MC; ATORVASTATIN CA10 MG ORAL; CALCIUM ACETATE1 GM MC; PLAVIX75 MG ORAL
[2020-04-19 16:26] LABS: BASOPHILS % (AUTO) 1.1 % (0.0-2.0); EOSINOPHILS % (AUTO) 4.4 % (0.0-3.0); HEMOGLOBIN 11.3 G/DL (14.2-18.0); LYMPHOCYTES % (AUTO) 13.7 % (20.0-45.0); MEAN CORPUSCULAR VOLUME 106 FL (80-99); MONOCYTES % (AUTO) 13.6 % (1.0-10.0); NEUTROPHILS % (AUTO) 67.2 % (45.0-75.0); PLATELET COUNT 163 K/UL (150-450); WHITE BLOOD COUNT 6.2 K/UL (4.8-10.8)
[2020-04-19 16:48] LABS: ANION GAP 16 mmol/L (5-15); BLOOD UREA NITROGEN 57 mg/dL (7-18); CALCIUM 6.3 MG/DL (8.5-10.1); CARBON DIOXIDE 27 MMOL/L (21-32); CHLORIDE 99 MMOL/L (98-107); CREATININE 13.6 MG/DL (0.55-1.30); POTASSIUM 3.3 MMOL/L (3.5-5.1); SODIUM 142 MMOL/L (136-145)
--- NOTE | 2020-04-19 16:53 | Emergency Room Report ---
History of Present Illness General Chief Complaint: General Complaint Source: Patient Present Illness HPI Patient describes having an AV fistula takedown on the left arm on Patient had his usual dialysis on Tuesday Today after having the dressing changed for the first time he noticed some leaking of blood through the Bandage and presents by paramedics denies any chest pain denies any shortness of breath There was a questionable syncopal episode after he saw the blood Otherwise at this time denies any lightheadedness denies any back or flank pain Denies any chest pain denies any fevers or chills Allergies: Coded Allergies: No Known Allergies (Verified , 02/22/09) COVID-19 Screening Contact w/high risk pt: No Recent Travel to affected area: No Experienced COVID-19 symptoms?: No COVID-19 Testing performed [facility] NURSE: No Patient History Past Medical History: see triage record Reviewed Nursing Documentation: PMH: Agreed; PSxH: Agreed Nursing Documentation-PMH Hx Cardiac Problems: Yes Hx Hypertension: Yes Hx COPD: Yes Hx Cancer: Yes - PROSTATE CA Hx Gastrointestinal Problems: No Hx Dialysis: Yes - m/w/f Hx Neurological Problems: No Review of Systems All Other Systems: negative except mentioned in HPI Physical Exam Vital Signs Date Time Temp Pulse Resp B/P (MAP) Pulse Ox O2 Delivery O2 Flow Rate FiO2 /30/20 15:25 99.0 67 16 128/61 (83) 99 Room Air Sp02 EP Interpretation: reviewed, normal General Appearance: well appearing, no apparent distress Head: normocephalic, atraumatic Eyes: bilateral eye PERRL, bilateral eye EOMI ENT: hearing grossly normal, EOM grossly intact Neck: supple Respiratory: lungs clear, no respiratory distress, no retraction Cardiovascular #1: regular rate, rhythm Gastrointestinal: non tender, soft Musculoskeletal: other - Patient has a drain in place in the left forearm from what appears to be recent AV fistula takedown there are sudhakar in place, there is minimal amount of oozing just at the proximal aspect of the wound Neurologic: alert, oriented x3 Psychiatric: normal inspection Skin: other - As above no obvious pulsatile hematoma Lymphatic: no adenopathy Procedures Laceration/Wound Repair Progress After evaluation of the wound, drain appears to be in place, very approximately where the drain enters into the wound there is some minimal oozing noted no obvious pulsatile bleeding., No obvious fluctuance the drain does have blood and appears to be functioning appropriately. A Surgicel patch is applied approximately externally and Kerlix dressing applied over the sudhakar. Patient tolerated the procedure well and the area taped down with appropriate control. Medical Decision Making Diagnostic Impression: Primary Impression: Hemorrhage from wound ER Course The area is investigated and addressed as noted in the procedural notes There was no other manipulation of the surgical region Patient reports that this was the first day that the home health nurse was there and the dressing had been changed possible dislodge of a clot Leading to the bleeding is possible after further observation patient was encouraged to have observation overnight However he reports that he feels well there was no further oozing or bleeding from the region noted I also spoke to family who is the patient's at home and she also reports that he did not want to stay in the hospital She is comfortable having him at home and watching him closely and they will return with any changes or concerns Labs Test 04/19/20 16:10 White Blood Count 6.2 K/UL (4.8-10.8) Red Blood Count 3.60 M/UL (4.70-6.10) Hemoglobin 11.3 G/DL (14.2-18.0) Hematocrit 38.0 % (42.0-52.0) Mean Corpuscular Volume 106 FL (80-99) Mean Corpuscular Hemoglobin 31.5 PG (27.0-31.0) Mean Corpuscular Hemoglobin Concent 29.8 G/DL (32.0-36.0) Red Cell Distribution Width 18.0 % (11.6-14.8) Platelet Count 163 K/UL (150-450) Mean Platelet Volume 7.3 FL (6.5-10.1) Neutrophils (%) (Auto) 67.2 % (45.0-75.0) Lymphocytes (%) (Auto) 13.7 % (20.0-45.0) Monocytes (%) (Auto) 13.6 % (1.0-10.0) Eosinophils (%) (Auto) 4.4 % (0.0-3.0) Basophils (%) (Auto) 1.1 % (0.0-2.0) Sodium Level 142 MMOL/L (136-145) Potassium Level 3.3 MMOL/L (3.5-5.1) Chloride Level 99 MMOL/L (98-107) Carbon Dioxide Level 27 MMOL/L (21-32) Anion Gap 16 mmol/L (5-15) Blood Urea Nitrogen 57 mg/dL (7-18) Creatinine 13.6 MG/DL (0.55-1.30) Estimat Glomerular Filtration Rate 4.5 mL/min (>60) Glucose Level 103 MG/DL (74-106) Calcium Level 6.3 MG/DL (8.5-10.1) Rhythm Strip Diag. Results EP Interpretation: yes Rate: 77 Rhythm: NSR, no PVC's, no ectopy Chest X-Ray Diagnostic Results Chest X-Ray Diagnostic Results : Chest X-Ray Ordered: Yes # of Views/Limited/Complete: 1 View Indication: Chest Pain EP Interpretation: Yes Interpretation: no consolidation, no effusion Impression: No acute disease Electronically Signed by: Moi Acharya DO Last Vital Signs Date Time Temp Pulse Resp B/P (MAP) Pulse Ox O2 Delivery O2 Flow Rate FiO2 /30/20 15:25 99.0 67 16 128/61 (83) 99 Room Air Status: improved Disposition: HOME, SELF-CARE Condition: Improved Additional Instructions: Patient is provided with the discharge instructions notified to follow up with primary doctor in the next 2-3 days otherwise return to the er with any worsening symptoms. Please note that this report is being documented using [employer] technology. This can lead to erroneous entry secondary to incorrect interpretation by the dictating instrument. Moi Acharya DO April 19, 2020 16:53
--- NOTE | 2020-04-19 17:02 | Diagnostic Imaging Report ---
Chest 1 view History: Chest pain Comparison: 02/22/2009 Findings: Left IJ dual-lumen catheter with tip in proximal SVC. Interval sternotomy wires are seen. Cardiomegaly, ectasia and tortuosity of aortic arch and descending thoracic aorta. Lungs, costophrenic angles are clear. Impression: 1. Interval sternotomy and mild increased cardiomegaly. 2. Left IJ dual-lumen catheter in satisfactory position. 3. Persistent ectasia and tortuosity of the aortic arch and descending thoracic aorta.
[2020-04-19 18:17] VITALS: BP 101/68
== END 2020-04-19 18:10 | disposition home or self-care (01) ==
LOC: EDBD 15:31 → EMR 17:15
DX: S51.802A Unspecified open wound of left forearm, initial encounter (principal); R58 Hemorrhage, not elsewhere classified; I10 Essential (primary) hypertension; J44.9 Chronic obstructive pulmonary disease, unspecified; Z85.46 Personal history of malignant neoplasm of prostate; X58.XXXA Exposure to other specified factors, initial encounter; Y92.9 Unspecified place or not applicable
CPT/HCPCS: 36415; 71045; 80048; 85025; 93005; 99284